=== PATIENT | male | born 1975 | race Caucasian/White ===

== ENCOUNTER 2020-04-07 16:02 | Emergency (ER) | payer OTHER ==
[~2020-04-07] VITALS: Ht 180.3 cm; Wt 77.1 kg
[~2020-04-07 16:02] MED LIST: CEPH500 PO; HYDACE5 PO; Naprosyn500 MG PO; PENVK500 PO; SILSUL1TC TOP; SULTRIDS PO; TRAM50 PO
== END 2020-04-07 17:41 | disposition home or self-care (01) ==
LOC: ER 16:02
DX: S61.212A Laceration without foreign body of right middle finger without damage to nail, initial encounter (principal); F17.200 Nicotine dependence, unspecified, uncomplicated; Z23 Encounter for immunization; W23.0XXA Caught, crushed, jammed, or pinched between moving objects, initial encounter; Y92.89 Other specified places as the place of occurrence of the external cause; Y99.0 Civilian activity done for income or pay
CPT/HCPCS: 12001; 73140; 90471; 90714; 99283-25

== ENCOUNTER → 2020-09-23 | Outpatient (CLI) | payer OTHER ==
[2020-09-25 08:09] LABS: HBSAG SCREEN Negative (Negative); HEP B CORE AB, TOT Negative (Negative); HEP C VIRUS AB 0.9 (0.0-0.9)
[2020-09-25 09:09] LABS: HIV SCREEN 4TH GENERATION WRFX Non Reactive (Non Reactive)
[2020-09-26 04:10] LABS: CHLAMYDIA TRACHOMATIS, NAA Negative (Negative)
[2020-09-27 03:11] LABS: HSV-1 DNA Negative (Negative); HSV-2 DNA Negative (Negative)
== END | disposition home or self-care (01) ==
LOC: LAB 17:15 → LAB SHORT 17:15
PROVIDERS: Nurse Practitioner Family
DX: R21 Rash and other nonspecific skin eruption (principal); Z72.51 High risk heterosexual behavior
CPT/HCPCS: 86592; 86704; 86708; 86803; 87340; 87389; 87491; 87529; 87591

== ENCOUNTER → 2021-11-25 | Outpatient (CLI) | payer OTHER ==
[2021-11-28 04:08] LABS: CHLAMYDIA TRACHOMATIS, NAA Negative (Negative)
== END | disposition home or self-care (01) ==
LOC: LAB 17:50 → LAB SHORT 17:50
PROVIDERS: Nurse Practitioner Family
DX: Z72.51 High risk heterosexual behavior (principal)
CPT/HCPCS: 87491; 87591

== ENCOUNTER 2022-04-15 16:49 | Emergency (ER) | payer OTHER ==
[~2022-04-15] VITALS: Ht 180.3 cm; Wt 74.8 kg
[2022-04-15] MEDS ORDERED: ALBU90OI INH (17:16)
[2022-04-15] MEDS ORDERED: BENZ100A PO (17:16)
== END 2022-04-15 17:17 | disposition home or self-care (01) ==
LOC: ER 16:49
DX: J06.9 Acute upper respiratory infection, unspecified (principal); Z79.899 Other long term (current) drug therapy; F17.200 Nicotine dependence, unspecified, uncomplicated
CPT/HCPCS: 99282

== ENCOUNTER 2022-11-14 07:33 | Emergency (ER) | payer OTHER ==
[~2022-11-14] VITALS: Ht 180.3 cm; Wt 77.1 kg
[~2022-11-14 07:33] MED LIST changes: +ALBU90OI INH; +BENZ100A PO
[2022-11-14 07:57] VITALS: BP 158/98
[2022-11-14] MEDS ORDERED: CEPH500 PO (09:12)
[2022-11-14] MEDS ORDERED: PERM5TC TOP (09:12)
== END 2022-11-14 09:18 | disposition home or self-care (01) ==
LOC: ER 07:33
DX: L08.9 Local infection of the skin and subcutaneous tissue, unspecified (principal); B86 Scabies; Z79.899 Other long term (current) drug therapy; F17.210 Nicotine dependence, cigarettes, uncomplicated
CPT/HCPCS: 99282